=== PATIENT | female | born 1970 | race Caucasian/White ===

== ENCOUNTER 2018-05-23 15:14 | Emergency (ER) | payer SELFPAY ==
[~2018-05-23] VITALS: Ht 160 cm; Wt 72.6 kg
[2018-05-23 15:30] VITALS: Ht 160 cm; Wt 72.6 kg
[2018-05-23 16:07] VITALS: BP 117/47
== END 2018-05-23 16:07 | disposition home or self-care (01) ==
LOC: ED 15:14
DX: S80.862A Insect bite (nonvenomous), left lower leg, initial encounter (principal); S80.861A Insect bite (nonvenomous), right lower leg, initial encounter; F17.210 Nicotine dependence, cigarettes, uncomplicated; Z71.6 Tobacco abuse counseling; W57.XXXA Bitten or stung by nonvenomous insect and other nonvenomous arthropods, initial encounter; Y93.89 Activity, other specified; Y92.89 Other specified places as the place of occurrence of the external cause; Y99.8 Other external cause status
CPT/HCPCS: 99406

== ENCOUNTER 2019-06-15 23:47 | Emergency (ER) | payer MEDICAID ==
[~2019-06-15] VITALS: Ht 160 cm; Wt 77.6 kg
[2019-06-16 00:58] VITALS: BP 111/37
== END 2019-06-16 00:58 | disposition home or self-care (01) ==
LOC: ED 23:47
DX: L03.115 Cellulitis of right lower limb (principal); W57.XXXA Bitten or stung by nonvenomous insect and other nonvenomous arthropods, initial encounter; Y93.89 Activity, other specified; Y92.096 Garden or yard of other non-institutional residence as the place of occurrence of the external cause; Y99.8 Other external cause status